=== PATIENT | male | born 1960 | race African-American/Black ===

== ENCOUNTER 2018-03-18 15:21 | Inpatient (IN) | payer BC ==
[~2018-03-18] VITALS: Ht 193 cm; Wt 69.4 kg
[2018-03-18] MEDS ORDERED: IV NS 0.9% 1,000 ML BAG IV ONE (15:30)
--- NOTE | 2018-03-18 15:30 | NUR ---
SERG INSURANCE ADVISER AT BEDSIDE FOR EVAL.
--- NOTE | 2018-03-18 15:47 | NUR ---
PT BIBRA FROM HOME TO ER BED 10. HERE FOR SYNCOPAL EPISODE WHILE LYING DOWN. 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 AAOX4. IV STOMACH CCANCER. ON MONITOR. STABLE VITALS. AWAITING MD CESAR.
--- NOTE | 2018-03-18 15:55 | NUR ---
BLOOD DRAWN FROM R SUBCLAVIAN PATRICE CATH. SENT TO LAB.
[2018-03-18 16:17] LABS: BASOPHILS % (AUTO) 0.7 % (0.0-2.0); EOSINOPHILS % (AUTO) 8.9 % (0.0-6.0); HEMATOCRIT 34 % (39-51); HEMOGLOBIN 11.4 g/dL (13.5-17.5); LYMPHOCYTES # (AUTO) 1.3 /CMM (0.8-4.8); LYMPHOCYTES % (AUTO) 45.8 % (20.0-44.0); MEAN CORPUSCULAR HEMOGLOBIN 31 PG (26.0-33.0); MEAN CORPUSCULAR HGB CONC 33 g/dl (31.0-36.0); MEAN CORPUSCULAR VOLUME 93 fL (80-96); MONOCYTES # (AUTO) 0.2 /CMM (0.1-1.30); MONOCYTES % (AUTO) 7.8 % (2.0-12.0); NEUTROPHILS % (AUTO) 36.8 % (43.0-81.0); PLATELET COUNT (AUTO) 171 /CMM (150-450); RDW COEFFICIENT OF VARIATION 14.2 (11.5-15.0); RED BLOOD CELL COUNT(AUTO) 3.71 MIL/uL (4.5-6.0); WHITE BLOOD COUNT (AUTO) 2.7 K/uL (4.3-11.0)
[2018-03-18 16:18] LABS: CARBON DIOXIDE 22 mmol/L (21-32); CHLORIDE 102 mmol/L (98-107); CREATININE 1.2 mg/dL (0.6-1.3); GLUCOSE 122 mg/dL (74-106); POTASSIUM 3.4 mmol/L (3.5-5.1); SODIUM SERUM 135 mmol/L (136-145); UREA NITROGEN, BLOOD 27 mg/dL (7-18)
[2018-03-18 16:21] LABS: ALANINE AMINOTRANSFERASE 12 U/L (12-78); ALBUMIN 3.3 g/dL (3.4-5.0); ALKALINE PHOSPHATASE 56 U/L (46-116); ASPARTATE AMINOTRANSFERASE 15 U/L (15-37); BILIRUBIN,DIRECT 0.2 mg/dL (0.0-0.2); TOTAL PROTEIN, SERUM 6.5 g/dL (6.4-8.2); TROPONIN I < 0.017 ng/mL (0.00-0.056)
--- NOTE | 2018-03-18 16:32 | NUR ---
RADIOLOGY AT BEDSIDE FOR CHEST XRAY.
--- NOTE | 2018-03-18 16:40 | NUR ---
CALLED [facility] ATTENDANT WAS PAGED.
[2018-03-18 16:45] LABS: INR 1.58 (0.85-1.15)
[2018-03-18] MEDS ORDERED: PIPERACILLIN /TAZOBACTAM 3.375 G in IV D5W 50 ML IV ONE (17:00)
[2018-03-18] MEDS ORDERED: IV NS 0.9% 1,000 ML IV PRN (17:13)
[2018-03-18] MEDS ORDERED: MAG HYDROX/AL HYDROX/SIMETH 30 ML UDC PO PRN (17:30)
[2018-03-18] MEDS ORDERED: ACETAMINOPHEN 325 MG TABLET PO PRN (17:30)
[2018-03-18] MEDS ORDERED: MAGNESIUM HYDROXIDE 30 ML UDC PO PRN (17:30)
[2018-03-18] MEDS ORDERED: Z GUARD REMEDY 2 OZ OINT TP PRN (17:30)
[2018-03-18] MEDS ORDERED: HYDROCODONE/APAP 5/325MG 1 EACH TABLET PO PRN (17:30)
[2018-03-18] MEDS ORDERED: ONDANSETRON HCL/PF 4 MG/2 ML VIAL IVP PRN (17:30)
[2018-03-18] MEDS ORDERED: ZOLPIDEM TARTRATE 5 MG TABLET PO PRN (17:30)
[2018-03-18 17:50] LABS: APPEARANCE,URINE Clear (CLEAR); BILIRUBIN,URINE Negative (NEGATIVE); BLOOD, URINE Negative Ery/uL (NEGATIVE); COLOR,URINE Yellow (YELLOW); KETONES,URINE 15 (NEGATIVE); LEUKOCYTE ESTERASE ,URINE Negative (NEGATIVE); NITRITE, URINE Negative (NEGATIVE); PH,URINE 5.5 (5.0-8.0); PROTEIN,URINE 100 mg/dl (NEGATIVE); UGLUCOSE Negative (NEGATIVE); UROBILINOGEN,URINE 0.2 EU/dL (0.2)
--- NOTE | 2018-03-18 18:04 | NUR ---
REPORT GIVEN TO PANTERA. PT AWAITING TRANSFER TO FLOOR.
[2018-03-18 18:13] LABS: BACTERIA,URINE Few /HPF (None Seen); RBC,URINE 0-2 /HPF (0-2); SQUAMOUS EPITHELIAL CELL,UR Few /HPF (None Seen)
[2018-03-18 18:14] LABS: MUCUS,URINE Moderate /LPF (None Seen)
--- NOTE | 2018-03-18 19:00 | NUR ---
RN INITIAL NOTES: Patient received in bed, alert, oriented x4. Breathing even and unlabored. No reports of pain or discomfort as of this time. at bedside. Tele monitor in place, Sinus rhythm 70. Oriented to call light. Bed in low locked position. Patient stable as per the morning shift nurse. Will monitor accordingly
[2018-03-18 19:59] VITALS: BP 100/69
[2018-03-18 20:00] VITALS: BP 100/69
--- NOTE | 2018-03-18 21:20 | NUR ---
RN NOTES: Patient has IVF to run but no IV site. Patient refused IV insertion. Order obtained for port-a-cath to be accessed for IV fluids and blood draw.
--- NOTE | 2018-03-18 21:25 | NUR ---
RN NOTES: Peripheral IV started. Infused through port-a-cath with CN
[2018-03-18] MEDS: ENOXAPARIN SODIUM 40 MG/0.4 ML DISP.SYRIN SQ SCH (22:06)
[2018-03-18 23:47] VITALS: BP 115/74
[2018-03-18] MEDS ORDERED: PIPERACILLIN /TAZOBACTAM 2.25 G VIAL IV ONE (23:48)
[2018-03-18] MEDS: PIPERACILLIN /TAZOBACTAM 4.5 G in IV NS 0.9% 50 ML IV SCH (23:54)
[2018-03-19] VITALS: BP 115/74
[2018-03-19 04:00] VITALS: BP 101/64
[2018-03-19 04:01] VITALS: BP 101/64
[2018-03-19] MEDS ORDERED: PIPERACILLIN /TAZOBACTAM 2.25 G VIAL IV ONE (05:04)
[2018-03-19] MEDS: PIPERACILLIN /TAZOBACTAM 4.5 G in IV NS 0.9% 50 ML IV SCH (05:31)
[2018-03-19 07:06] LABS: BASOPHILS # (AUTO) 0.1 /CMM (0.0-0.2); BASOPHILS % (AUTO) 1.5 % (0.0-2.0); EOSINOPHILS % (AUTO) 10.9 % (0.0-6.0); HEMATOCRIT 28 % (39-51); HEMOGLOBIN 9.3 g/dL (13.5-17.5); LYMPHOCYTES % (AUTO) 52.1 % (20.0-44.0); MEAN CORPUSCULAR HEMOGLOBIN 31 PG (26.0-33.0); MEAN CORPUSCULAR HGB CONC 33 g/dl (31.0-36.0); MEAN CORPUSCULAR VOLUME 94 fL (80-96); MONOCYTES # (AUTO) 0.2 /CMM (0.1-1.30); MONOCYTES % (AUTO) 5.6 % (2.0-12.0); NEUTROPHILS # (AUTO) 1.1 /CMM (1.8-8.9); NEUTROPHILS % (AUTO) 29.9 % (43.0-81.0); PLATELET COUNT (AUTO) 153 /CMM (150-450); RDW COEFFICIENT OF VARIATION 14.8 (11.5-15.0); WHITE BLOOD COUNT (AUTO) 3.8 K/uL (4.3-11.0)
--- NOTE | 2018-03-19 07:08 | NUR ---
RN CLOSING NOTES: Patient in bed sleeping, but easily arousable. Alert, oriented x 4. Able to make needs known. Patient remains stable. Peripheral IV infusing at 75mL/hr. No complaints as of this time. All needs attended to. All due medications given as ordered. CAll gallego within reach. Bed in low, locked position. Will endorse TIGRE to AM shift RN
[2018-03-19 07:20] LABS: CALCIUM, SERUM 8.4 mg/dL (8.5-10.1); CREATININE 1.1 mg/dL (0.6-1.3); MAGNESIUM 1.5 mg/dL (1.8-2.4); PHOSPHORUS 2.7 mg/dL (2.5-4.9)
--- NOTE | 2018-03-19 07:58 | NUR ---
FINAL ASSEMBLY AND PACKING SUPERVISOR NOTES PATIENT RECEIVED RESTING INSIDE ROOM. AWAKE, ALERT AND ORIENTED X 4, VERBALLY RESPONSIVE AND RESPONDS TO VERBAL AND TACTILE STIMULI. BREATHING EVEN AND UNLABORED. NO SOB OR ACUTE DISTRESS NOTED. NO CHANGES IN LOC NOTED AT THIS TIME. PATIENT AFEBRILE, SKIN DRY AND WARM TO TOUCH. PATIENT CALM AND RELAXED. PORT-A-CATH PATENT. NO SWELLING OR BLEEDING NOTED SITE. WILL CONTINUE TO MONITOR. BED LOCKED AND IN LOW POSITION. BILATERAL UPPER SIDE RAILS UP AND LOCKED. CALL LIGHT WITHIN EASY REACH
[2018-03-19 08:00] VITALS: BP 104/69
[2018-03-19 08:03] LABS: TROPONIN I 0.033 ng/mL (0.00-0.056)
[2018-03-19 08:11] LABS: THYROID STIMULATING HORMONE 1.323 uIU/mL (0.358-3.74)
[2018-03-19] MEDS: Magnesium 1GM/D5W 100ML PREMIX 100 ML IV SCH ×2 (08:39→09:45)
[2018-03-19] MEDS: MULTIVITAMINS,THERAGRAN 1 UDTAB TABLET PO SCH (11:14)
[2018-03-19] MEDS: PIPERACILLIN /TAZOBACTAM 3.375 G in IV D5W 50 ML IV SCH ×2 (11:14→17:27)
[2018-03-19] MEDS: Potassium Chloride 40 MEQ in IV NS 0.9% 1,000 ML IV PRN ×2 (11:53→21:38)
[2018-03-19] MEDS: SOD FERRIC GLUC 125 MG in IV NS 0.9% 100 ML IV SCH (13:20)
[2018-03-19 16:00] VITALS: BP 129/75
--- NOTE | 2018-03-19 18:43 | NUR ---
MS RN NOTES PATIENT RESTING INSIDE ROOM. AWAKE, ALERT AND ORIENTED X 4, VERBALLY RESPONSIVE AND RESPONDS TO VERBAL AND TACTILE STIMULI. BREATHING EVEN AND UNLABORED. NO SOB OR ACUTE DISTRESS NOTED AT THIS TIME. PATIENT AFEBRILE, SKIN DRY AND WARM TO TOUCH. NO CHANGES IN LOC NOTED AT THIS TIME. PATIENT CALM AND RELAXED. PORT-A-CATH INTACT AND PATENT. NO SWELLING OR BLEEDING NOTED ON SITE. WITH NS WITH KCL 40MEQ RUNNING AT 200CC/GR. WILL ENDORSE TO INCOMING SHIFT FOR TIGRE. BED LOCKED AND IN LOW POSITION. BILATERAL UPPER SIDE RAILS UP AND LOCKED. CALL LIGHT WITHIN EASY REACH
--- NOTE | 2018-03-19 19:30 | NUR ---
RN NOTES RECEIVED PT. AWAKE ON BED, A/OX4, FAMILY AT BEDSIDE, PATRICE CATH IN PLACE, DENIES PAIN, NO SOB, CALL LIGHT WITHIN REACH, [id number], WILL CONTINUE TO MONITOR
[2018-03-19 20:00] VITALS: BP 112/68
[2018-03-19] MEDS: ENOXAPARIN SODIUM 40 MG/0.4 ML DISP.SYRIN SQ SCH (21:37)
[2018-03-20] MEDS: PIPERACILLIN /TAZOBACTAM 3.375 G in IV D5W 50 ML IV SCH ×5 (00:07→23:33)
--- NOTE | 2018-03-20 06:29 | NUR ---
RN NOTES SLEEPING BUT AROUSABLE, DENIES PAIN, NO SOB, MORNING CARE RENDERED, CALL LIGHT WITHIN REACH, [id number], PT. NEEDS ATTENDED
[2018-03-20 07:10] LABS: BASOPHILS % (AUTO) 1.5 % (0.0-2.0); EOSINOPHILS % (AUTO) 14.7 % (0.0-6.0); HEMATOCRIT 28 % (39-51); HEMOGLOBIN 9.3 g/dL (13.5-17.5); LYMPHOCYTES # (AUTO) 1.5 /CMM (0.8-4.8); LYMPHOCYTES % (AUTO) 50.5 % (20.0-44.0); MEAN CORPUSCULAR HEMOGLOBIN 31 PG (26.0-33.0); MEAN CORPUSCULAR HGB CONC 33 g/dl (31.0-36.0); MEAN CORPUSCULAR VOLUME 95 fL (80-96); MONOCYTES # (AUTO) 0.3 /CMM (0.1-1.30); MONOCYTES % (AUTO) 9.2 % (2.0-12.0); NEUTROPHILS # (AUTO) 0.7 /CMM (1.8-8.9); NEUTROPHILS % (AUTO) 24.1 % (43.0-81.0); PLATELET COUNT (AUTO) 177 /CMM (150-450); RDW COEFFICIENT OF VARIATION 14.5 (11.5-15.0)
[2018-03-20 07:26] LABS: ALBUMIN 2.8 g/dL (3.4-5.0); BILIRUBIN,TOTAL 0.8 mg/dL (0.2-1.0); CALCIUM, SERUM 8.3 mg/dL (8.5-10.1); PHOSPHORUS 2.1 mg/dL (2.5-4.9); POTASSIUM 3.5 mmol/L (3.5-5.1); TOTAL PROTEIN, SERUM 5.6 g/dL (6.4-8.2)
--- NOTE | 2018-03-20 07:45 | NUR ---
MS RN NOTES PATIENT RECEIVED RESTING INSIDE ROOM. AWAKE ,ALERT AND ORIENTED, VERBALLY RESPONSIVE AND RESPONDS TO VERBAL AND TACTILE STIMULI. BREATHING EVEN AND UNLABORED. NO SOB OR ACUTE DISTRESS NOTED. NO CHANGES IN LOC NOTED AT THIS TIME. PATIENT CALM AND RELAXED. PORT-A-CATH INTACT, NO SWELLING OR BLEEDING NOTED ON SITE. WILL CONTINUE TO MONITOR. BED LOCKED AND IN LOW POSITION. BILATERAL UPPER SIDE RAILS UP AND LOCKED. CALL LIGHT WITHIN EASY REACH
[2018-03-20 08:00] VITALS: BP 100/68
[2018-03-20] MEDS: MULTIVITAMINS,THERAGRAN 1 UDTAB TABLET PO SCH (08:25)
[2018-03-20 09:00] VITALS: BP_SYST 110; BP_SYST 114; BP_SYST 88; BP_DIAS 66; BP_DIAS 72; BP_DIAS 73
[2018-03-20 10:21] LABS: INR 1.41 (0.87-1.13)
[2018-03-20] MEDS ORDERED: K PHOS NEUTRAL 250 MG TABLET PO ONE (11:00)
[2018-03-20] MEDS: SOD FERRIC GLUC 125 MG in IV NS 0.9% 100 ML IV SCH (14:21)
[2018-03-20 16:00] VITALS: BP 109/75
--- NOTE | 2018-03-20 18:33 | NUR ---
MS RN NOTES PATIENT RESTING INSIDE ROOM. AWAKE, ALERT AND ORIENTED, VERBALLY RESPONSIVE AND RESPONDS TO VERBAL AND TACTILE STIMULI. BREATHING EVEN AND UNLABORED. NO SOB OR ACUTE DISTRESS NOTED AT THIS TIME. PATIENT AFEBRILE, SKIN DRY AND WARM TO TOUCH. NO CHANGES IN LOC NOTED. PORT-A-CATH INTACT AND PATENT, NO SWELLING OR BLEEDING NOTED ON SIDE. WILL ENDORSE TO INCOMING SHIFT FOR TIGRE. BED LOCKED AND IN LOW POSITION. BILATERAL UPPER SIDE RAILS UP AND LOCKED. CALL LIGHT WITHIN EASY REACH
--- NOTE | 2018-03-20 19:30 | NUR ---
RN NOTES RECEIVED PT. AWAKE ON BED, AT BEDSIDE, DENIES PAIN, NO SOB, PATRICE CATH IN PLACE, CALL LIGHT WITHIN REACH, [id number], WILL CONTINUE TO MONITOR
[2018-03-20 20:00] VITALS: BP_SYST 115; BP_SYST 139; BP_DIAS 61; BP_DIAS 78
[2018-03-20] MEDS: ENOXAPARIN SODIUM 40 MG/0.4 ML DISP.SYRIN SQ SCH (20:47)
[2018-03-21] MEDS: PIPERACILLIN /TAZOBACTAM 3.375 G in IV D5W 50 ML IV SCH ×2 (06:04→12:23)
--- NOTE | 2018-03-21 07:00 | NUR ---
RN NOTES AWAKE, DENIES PAIN, NO SOB, PATRICE CATH IN PLACE, PATENT, NO REDNESS, MORNING CARE RENDERED, CALL LIGHT WITHIN REACH, [id number], PT. NEEDS ATTENDED
[2018-03-21 08:00] VITALS: BP 98/75
--- NOTE | 2018-03-21 08:00 | NUR ---
RN NOTES RECEIVED PATIENT IN THE BED A/O X3/4, HAS NO ACUTE RESPIRATORY DISTRESS, V/S STABLE, PATIENT AMBULATORY USING BATHROOM, SAFETY PRECAUTION MAINTAINED ALL THE TIME. PATIENT REFUSED PAIN AT THIS TIME. SCHEDULED MEDICATION ADMINISTERED. PATRICE CATH ON RIGHT UPPER CHEST INTACT.NEEDS ATTENDED AND ANTICIPATED, CALL LIGHT WITHIN TO REACH, CONTINUED MONITORING.
[2018-03-21] MEDS: MULTIVITAMINS,THERAGRAN 1 UDTAB TABLET PO SCH (08:39)
[2018-03-21] MEDS: POTASSIUM CHLORIDE 20 MEQ TAB.PRT.SR PO SCH ×2 (08:39→08:42)
--- NOTE | 2018-03-21 10:00 | NUR ---
RN NOTES PATIENT GOING TO D/C HOME.
--- NOTE | 2018-03-21 13:49 | NUR ---
DISCHARGE NOTES PATIENT DISCHARGE AT THIS TIME GOING HOME SELF CARE. PATIENT A/ONX4, NO COMPLAINING OF PAIN, NO ACUTE RESPIRATORY DISTRESS, V/S STABLE. MED RECONCILIATION , AND DISCHARGE ORDER REVIEWED AND EXPLAINED TO. PATIENT VERBALIZED UNDERSTANDING. BELONGING WITH THE PATIENT. PATIENT SIGN PAPERWORK. ESCORTED PATIENT TO THE LOBBY FOR SAFETY. PATIENT WILL FOLLOW PRIMARY MD. PATIENT CARE ASSISTANT BY NAME NAME MIGUEL PHONE # [phone].
== END 2018-03-21 14:04 | disposition home or self-care (01) | DRG 682 ==
LOC: ER 15:23 → TELE 18:19 → MED 03-19 10:16
PROVIDERS: ADMIT Internal Medicine; ATTEND Internal Medicine
DX: N17.0 Acute kidney failure with tubular necrosis (principal); E43 Unspecified severe protein-calorie malnutrition; C16.9 Malignant neoplasm of stomach, unspecified; D68.9 Coagulation defect, unspecified; E87.1 Hypo-osmolality and hyponatremia; E87.2 Acidosis; N17.9 Acute kidney failure, unspecified; E86.0 Dehydration; Z92.21 Personal history of antineoplastic chemotherapy; I95.1 Orthostatic hypotension; D50.9 Iron deficiency anemia, unspecified; E87.6 Hypokalemia; E83.42 Hypomagnesemia; E83.51 Hypocalcemia; E78.5 Hyperlipidemia, unspecified; I10 Essential (primary) hypertension; D70.9 Neutropenia, unspecified; I70.0 Atherosclerosis of aorta
CPT/HCPCS: 36415; 71045-TC; 80048-TC; 80053-TC; 80061-TC; 80076-TC; 81000-TC; 82306; 82728-TC; 83540-TC; 83605-TC; 83735-TC; 84100-TC; 84439-TC; 84443-TC; 84484-TC; 85025-TC; 85730-TC; 87040-TC; 87081-TC; 87086-TC; 93307-TC; A4216; A4606; J1650; J2543; J2916; J3475; J3480; J7030; J7050; J7060; Z7610

== ENCOUNTER 2018-04-11 13:05 | Emergency (ER) | payer BC ==
[~2018-04-11] VITALS: Ht 175.3 cm; Wt 74.8 kg
[2018-04-11] MEDS ORDERED: IV NS 0.9% 1,000 ML BAG IV ONE (13:30)
--- NOTE | 2018-04-11 13:30 | NUR ---
carmen brazing machine operator helper at bedsided for eval.
--- NOTE | 2018-04-11 13:32 | NUR ---
pt bibra from home to er bed 11. pt is c/o generalized weakness loss of apetite, and dark colored urine for days now. pt has hx of gastric ulcer. denies cp. 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 vss. awaiting md alanis.
--- NOTE | 2018-04-11 13:49 | NUR ---
radiology at bedside for chest xray.
[2018-04-11 14:03] LABS: CALCIUM, SERUM 9.3 mg/dL (8.5-10.1); CREATININE 1.1 mg/dL (0.6-1.3); POTASSIUM 3.8 mmol/L (3.5-5.1)
--- NOTE | 2018-04-11 14:05 | NUR ---
pt unable to provide urine sample at this time.
[2018-04-11 14:08] LABS: BILIRUBIN,DIRECT 0.2 mg/dL (0.0-0.2); TOTAL PROTEIN, SERUM 7.1 g/dL (6.4-8.2)
[2018-04-11 14:12] LABS: INR 0.99 (0.85-1.15)
[2018-04-11 14:16] LABS: BASOPHILS # (AUTO) 0.1 /CMM (0.0-0.2); HEMATOCRIT 38 % (39-51); HEMOGLOBIN 12.1 g/dL (13.5-17.5); LYMPHOCYTES # (AUTO) 2.8 /CMM (0.8-4.8); LYMPHOCYTES % (AUTO) 32.9 % (20.0-44.0); MEAN CORPUSCULAR HEMOGLOBIN 31 PG (26.0-33.0); MEAN CORPUSCULAR HGB CONC 32 g/dl (31.0-36.0); MEAN CORPUSCULAR VOLUME 96 fL (80-96); MONOCYTES # (AUTO) 0.7 /CMM (0.1-1.30); MONOCYTES % (AUTO) 8.5 % (2.0-12.0); NEUTROPHILS # (AUTO) 4.2 /CMM (1.8-8.9); NEUTROPHILS % (AUTO) 49.6 % (43.0-81.0); PLATELET COUNT (AUTO) 276 /CMM (150-450); RDW COEFFICIENT OF VARIATION 18.8 (11.5-15.0); RED BLOOD CELL COUNT(AUTO) 3.96 MIL/uL (4.5-6.0); WHITE BLOOD COUNT (AUTO) 8.4 K/uL (4.3-11.0)
--- NOTE | 2018-04-11 14:37 | NUR ---
CALLED [facility] FOR PANEL CALL AND DR CHAVEZ WAS PAGED.
--- NOTE | 2018-04-11 14:40 | NUR ---
CALLED NURSING FACILITIES LOCATOR AND REQUESTED A TELE BED FOR THIS PT.
[2018-04-11 15:28] LABS: APPEARANCE,URINE Clear (CLEAR); BILIRUBIN,URINE SMALL (NEGATIVE); BLOOD, URINE Trace-intact Ery/uL (NEGATIVE); COLOR,URINE Yellow (YELLOW); KETONES,URINE Trace (NEGATIVE); LEUKOCYTE ESTERASE ,URINE Negative (NEGATIVE); NITRITE, URINE Negative (NEGATIVE); PH,URINE 5.5 (5.0-8.0); PROTEIN,URINE 100 mg/dl (NEGATIVE); UGLUCOSE Negative (NEGATIVE); UROBILINOGEN,URINE 0.2 EU/dL (0.2)
[2018-04-11 15:51] LABS: RBC,URINE 0-2 /HPF (0-2)
[2018-04-11 15:52] LABS: BACTERIA,URINE Few /HPF (None Seen); WBC,URINE 0-2 /HPF (0-3)
[2018-04-11 15:53] LABS: MUCUS,URINE Moderate /LPF (None Seen); SQUAMOUS EPITHELIAL CELL,UR Few /HPF (None Seen)
[2018-04-11 15:54] LABS: CALCIUM OXALATE CRYSTALS,UR Moderate /HPF (None Seen)
--- NOTE | 2018-04-11 16:15 | NUR ---
Patient discharged to home in stable condition. Written and verbal after care instructions given. Patient verbalizes understanding of instruction.
[2018-04-11 16:16] VITALS: BP 126/84
== END 2018-04-11 16:17 | disposition home or self-care (01) ==
LOC: ER 13:06
DX: E86.0 Dehydration (principal); R62.7 Adult failure to thrive; Z85.028 Personal history of other malignant neoplasm of stomach
CPT/HCPCS: 36415; 71045; 80048; 80076; 81001; 83690; 85025; 85730; 99285; A4606; J7030 ×2; Z7610; 81000-TC